=== PATIENT | male | born 2000 | race Two or more races ===

== ENCOUNTER 2021-01-08 08:13 | Emergency (ER) | payer MEDICAID ==
[~2021-01-08] VITALS: Ht 175.3 cm; Wt 158.8 kg
[~2021-01-08 08:13] MED LIST: ACET-929
[2021-01-08 08:49] VITALS: BP 143/83
== END 2021-01-08 10:33 | disposition home or self-care (01) ==
LOC: ER 08:13
DX: L02.811 Cutaneous abscess of head [any part, except face] (principal)